=== PATIENT | male | born 1980 | race Two or more races ===

== ENCOUNTER → 2020-09-13 | Outpatient (CLI) | payer BC ==
--- NOTE | 2020-09-13 15:13 | RADIOLOGY REPORT (SQ) ---
EXAM DESCRIPTION: FOOT BILATERAL 3 VIEWS IMAGES COMPLETED DATE/TIME: 09/13/2020 2:45 pm REASON FOR STUDY: (M79.673)PAIN IN UNSPECIFIED FOOT M79.673 PAIN IN UNSPECIFIED FOOT COMPARISON: None. NUMBER OF VIEWS: Three views. TECHNIQUE: AP, lateral and oblique radiographic images acquired of the right and left foot. LIMITATIONS: None. FINDINGS: MINERALIZATION: Normal. BONES: No acute fracture or dislocation. No worrisome bone lesions. JOINTS: No effusions. SOFT TISSUES: No soft tissue swelling. No foreign body. OTHER: No other significant finding. IMPRESSION: 1. NEGATIVE STUDY OF THE RIGHT AND LEFT FEET. TECHNICAL DOCUMENTATION: JOB ID: [id number] 2010 [employer]- All Rights Reserved Reading location - IP/workstation name: [email or web address]
== END ==
LOC: RAD 14:10
PROVIDERS: ATTEND Internal Medicine Nephrology
DX: M79.671 Pain in right foot (principal); M79.672 Pain in left foot

== ENCOUNTER 2020-09-14 16:03 | Emergency (ER) | payer BC ==
--- NOTE | 2020-09-14 18:53 | ER Document Report ---
ED Medical Screen (RME) - General Chief Complaint: Laceration Stated Complaint: LACERATION TO FOOT Time Seen by Provider: 09/14/20 18:41 Primary Care Provider: AMBROSE MONACO MD [Primary Care Provider] - Follow up as needed Mode of Arrival: Wheelchair Information source: Patient Notes: HPI; 39-year-old male presents to the emergency room for persistent bleeding to his left great toenail. Patient states that he dropped a table on his foot about 4 5 days ago. Was seen by his hat lacer yesterday who ordered outpatient x-rays and put a dressing on it. Patient states it is continuing to bleed. States his tetanus is up-to-date. PE: Alert and oriented x3. Lungs: Clear to auscultation without rales, rhonchi, wheezes. Heart: Regular rate rhythm without murmurs, rubs, gallops. Left great toenail slightly lifted off the nail bed. Bleeding is persistent. Left foot is edematous and warm to touch. Positive left pedal pulse. I have greeted and performed a rapid initial assessment of this patient. A comprehensive ED assessment and evaluation of the patient, analysis of test results and completion of the medical decision making process will be conducted by additional ED providers. I have specifically instructed the patient or family members with the patient to immediately return to any nursing staff should anything change in the patient's condition or with their chief complaint. TRAVEL OUTSIDE OF THE [place] IN LAST 30 DAYS: No - Related Data Allergies/Adverse Reactions: No Known Allergies Allergy (Verified 09/14/20 18:36) Physical Exam - Vital signs Vitals: Temp Pulse Resp BP Pulse Ox 98.8 F 88 16 151/102 H 98 09/14/20 17:28 09/14/20 17:28 09/14/20 17:28 09/14/20 17:28 09/14/20 17:28 Course - Vital Signs Vital signs: Temp Pulse Resp BP Pulse Ox 98.8 F 88 16 151/102 H 98 09/14/20 17:28 09/14/20 17:28 09/14/20 17:28 09/14/20 17:28 09/14/20 17:28 Doctor's Discharge - Discharge Referrals: AMBROSE MONACO MD [Primary Care Provider] - Follow up as needed
[2020-09-14 19:59] LABS: ABSOLUTE BASOPHILS # (AUTO) 0.1 10^3/uL (0.0-0.2); ABSOLUTE EOSINOPHILS # (AUTO) 0.2 10^3/uL (0.0-0.6); ABSOLUTE LYMPHOCYTES (AUTO) 1.2 10^3/uL (0.5-4.7); ABSOLUTE MONOCYTES (AUTO) 0.5 10^3/uL (0.1-1.4); ABSOLUTE NEUT (AUTO) 4.4 10^3/uL (1.7-8.2); EOSINOPHILS % (AUTO) 3.2 % (0-6); HEMATOCRIT 31.6 % (37.9-51.0); HEMOGLOBIN 10.6 g/dL (13.5-17.0); MEAN CORPUSCULAR HEMOGLOBIN 28.4 pg (27.0-33.4); MEAN CORPUSCULAR HGB CONC 33.6 g/dL (32.0-36.0); MEAN CORPUSCULAR VOLUME 84 fl (80-97); MONOCYTES % (AUTO) 8.2 % (3-13); RED BLOOD COUNT 3.74 10^6/uL (4.35-5.55); RED CELL DISTRIBUTION WIDTH 17.5 % (11.5-14.0); SEGMENTED NEUTROPHILS % (AUTO) 68.6 % (42-78); TOTAL CELLS COUNTED % (AUTO) 100 %; WHITE BLOOD COUNT 6.5 10^3/uL (4.0-10.5)
[2020-09-14 20:12] LABS: ALBUMIN 3.8 g/dL (3.5-5.0); ALKALINE PHOSPHATASE 94 U/L (38-126); ANION GAP 17 (5-19); ASPARTATE AMINO TRANSFERASE 76 U/L (17-59); BILIRUBIN,DIRECT 0.3 mg/dL (0.0-0.4); BILIRUBIN,TOTAL 0.4 mg/dL (0.2-1.3); BLOOD UREA NITROGEN 114 mg/dL (7-20); CARBON DIOXIDE 24 mmol/L (22-30); CHLORIDE 95 mmol/L (98-107); GLUCOSE 106 mg/dL (75-110); POTASSIUM 4.6 mmol/L (3.6-5.0); TOTAL PROTEIN 6.9 g/dL (6.3-8.2)
[2020-09-14 20:30] LABS: CALCIUM 6.6 mg/dL (8.4-10.2)
[2020-09-14 20:45] LABS: PLATELET COUNT 99 10^3/uL (150-450)
[2020-09-14] MEDS ORDERED: CALCIUM CARBONATE 500 MG TAB.CHEW PO ONE (22:14)
--- NOTE | 2020-09-14 22:15 | ER Document Report ---
ED General - General Chief Complaint: Laceration Stated Complaint: LACERATION TO FOOT Time Seen by Provider: 09/14/20 18:41 Primary Care Provider: AMBROSE MONACO MD [Primary Care Provider] - Follow up as needed Mode of Arrival: Wheelchair TRAVEL OUTSIDE OF THE [place] IN LAST 30 DAYS: No - HPI Notes: 39-year-old male presents with pain to his left great toe. Patient states that 4 to 5 days ago he injured his toe on a table. It is swollen and has been oozing blood. He saw his tube roller yesterday and had an x-ray which was negative for fracture. He is walking on the foot. - Related Data Allergies/Adverse Reactions: No Known Allergies Allergy (Verified 09/14/20 18:36) Past Medical History - General Information source: Patient - Social History Smoking Status: Never Smoker Family History: Reviewed & Not Pertinent Patient has homicidal ideation: No Review of Systems - Review of Systems Constitutional: No symptoms reported EENT: No symptoms reported Cardiovascular: No symptoms reported Respiratory: No symptoms reported Gastrointestinal: No symptoms reported Genitourinary: No symptoms reported Male Genitourinary: No symptoms reported Musculoskeletal: See HPI Skin: Change in color Hematologic/Lymphatic: No symptoms reported Neurological/Psychological: No symptoms reported Physical Exam - Vital signs Vitals: Temp Pulse Resp BP Pulse Ox 98.8 F 88 16 151/102 H 98 09/14/20 17:28 09/14/20 17:28 09/14/20 17:28 09/14/20 17:28 09/14/20 17:28 - General General appearance: Appears well, Alert In distress: None - HEENT Head: Normocephalic, Atraumatic - Respiratory Respiratory status: No respiratory distress - Cardiovascular Rhythm: Regular Pulses: Normal: Dorsalis pedis Normal capillary refill: Yes - Abdominal Inspection: Other - Peritoneal dialysis - Extremities Notes: Large subungual blood collection under left great toenail - Neurological Neuro grossly intact: Yes Cognition: Normal Orientation: AAOx4 - Psychological Associated symptoms: Normal affect - Skin Skin Temperature: Warm Course - Re-evaluation Re-evalutation: 39-year-old male with large subungual hematoma of left great toe, injured it 4 to 5 days ago after hitting it on a table. Trephination was performed at bedside which greatly improved the blood collection, patient also reported this improved his pain. He had a laboratory evaluation done through triage, essentially notable for hypocalcemia which was replaced orally. Given his comorbidities, elected to place him on a course of Keflex. Return precautions given, stable at time of discharge. - Vital Signs Vital signs: Temp Pulse Resp BP Pulse Ox 98.8 F 87 20 162/98 H 99 09/14/20 17:28 09/15/20 00:08 09/15/20 00:08 09/15/20 00:08 09/15/20 00:08 - Laboratory Results Result Diagrams: 09/14/20 19:36 09/14/20 19:36 Laboratory Results Interpreted: 09/14/20 09/14/20 19:36 19:36 RBC 3.74 L Hgb 10.6 L Hct 31.6 L RDW 17.5 H Plt Count 99 L Sodium 135.9 L Chloride 95 L BUN 114 H Creatinine 18.90 H Est GFR ( Amer) 3 L Est GFR (MDRD) Non-Af 3 L Calcium 6.6 L* AST 76 H Critical Laboratory Results Reviewed: Yes Attending or Supervising Physician who Reviewed Labs: MARIA EUGENIA RODRIGUEZ - Radiology Results Critical Radiology Results Reviewed: No Critical Results Procedures - Nail Trephanation/Removal Left Great toe Nail Trepanation/Removal Location: Left great toenail Betadine prep applied: No Method of Drainage: Nail cauterized Sterile Dressing Applied: Yes Notes: 3 holes made with cautery with successful return of blood from subungual hematoma Discharge - Discharge Clinical Impression: Subungual hematoma of great toe of left foot Qualifiers: Encounter type: initial encounter Qualified Code(s): S90.212A - Contusion of left great toe with damage to nail, initial encounter Disposition: HOME, SELF-CARE Instructions: Soap Cleansing ([facility]) Additional Instructions: Please soak the foot in hot water several times a day to further encourage drainage. Begin course of antibiotics. Return to the emergency department for any concerning worsening symptoms. Prescriptions: Cephalexin Monohydrate [Keflex 500 mg Capsule] 500 mg PO Q6H 5 Days #20 capsule Referrals: AMBROSE MONACO MD [Primary Care Provider] - Follow up as needed
[2020-09-15 00:10] VITALS: BP 162/98
== END 2020-09-15 00:10 | disposition home or self-care (01) ==
LOC: ER 16:03
DX: S90.212A Contusion of left great toe with damage to nail, initial encounter (principal); W20.8XXA Other cause of strike by thrown, projected or falling object, initial encounter
CPT/HCPCS: 36415; 80053; 83605; 85025; 99283